=== PATIENT | male | born 1955 | race Caucasian/White ===

== ENCOUNTER 2021-04-07 11:43 | Emergency (ER) | payer OTHER ==
[~2021-04-07] VITALS: Ht 187.9 cm; Wt 114.8 kg
[2021-04-07] MEDS ORDERED: XARE20MG PO (11:47)
[2021-04-07] MEDS ORDERED: LOSARTAN-HCTZ1 EACH PO (11:48)
[2021-04-07] MEDS ORDERED: LASIX20 MG PO (11:48)
== END 2021-04-07 14:15 | disposition home or self-care (01) ==
LOC: ED 11:43
DX: R58 Hemorrhage, not elsewhere classified (principal); M79.652 Pain in left thigh; Z98.890 Other specified postprocedural states; Z88.0 Allergy status to penicillin; Z79.899 Other long term (current) drug therapy